=== PATIENT | male | born 1965 | race Caucasian/White ===

== ENCOUNTER → 2021-06-02 | Outpatient (CLI) | payer OTHER ==
[~2021-06-02] MED LIST: ALL DAY ALLERGY10 MG PO; AMBIEN10 MG PO; ASPIR 8181 MG PO; BENADRYL25 MG PO; CLOPIDOGREL75 MG PO; COMBIVENT RESPIM4 GM INH; DIOVAN320 MG PO; EPIPEN 2-P0.3 MG/0.3 INJ; GLUCOPHAGE1000 MG PO; GRAFCO SILVER1 EACH TP; HUMIBID LA TAB600 MG PO; IPRAT-ALBUT 0.5-3 ML INH; ISOSORBIDE MONO60 MG PO; KENALOG CREAM 080 GM EXT; LIPITOR TAB 2020 MG PO; LOPRESSOR100 MG PO; NITROSTAT 0.40.4 MG SL; NOVOLIN 70100 UNIT/1 SQ; PREDNISONE20 MG PO; PREDNISONE5 MG PO; PREPARATION H26 GM TP; PROCTOZONE-HC30 GM PR; PROMETHAZINE HC25 M1 PO; PROTONIX 40 MG40 M1 PO; SYMBICORT 160-1 INHA INH; ULTRAM50 MG PO; WELLBUTRIN SR200 MG PO
== END ==
LOC: HEART 5 14:18
DX: R00.2 Palpitations (principal)

== ENCOUNTER → 2021-08-05 | Outpatient (CLI) | payer OTHER | LOC: RAD 10:49 | DX: R07.9 Chest pain, unspecified (principal) | CPT/HCPCS: 71046 ==